=== PATIENT | male | born 1955 | race Caucasian/White ===

== ENCOUNTER 2025-03-03 14:07 | Inpatient (IN) | payer OTHER ==
[2025-03-03 16:39] VITALS: BMI 26.9
[2025-03-03] MEDS ORDERED: LOPERAMIDE HCL 2 MG CAPSULE PO PRN (16:57)
[2025-03-03] MEDS ORDERED: BENZONATATE 200 MG CAPSULE PO PRN (16:57)
[2025-03-03] MEDS ORDERED: POLYETHYLENE GLYCOL (HEALTHYLAX) 3350 17 GM PACKET PO PRN (16:57)
[2025-03-03] MEDS ORDERED: IBUPROFEN 600 MG TABLET (FP) PO PRN (16:57)
[2025-03-03] MEDS ORDERED: BISMUTH SUBSALICYLATE 524 MG/30 ML PO PRN (16:57)
[2025-03-03] MEDS ORDERED: guaiFENesin 600 MG TABLET.ER (FP) PO PRN (16:57)
[2025-03-03] MEDS ORDERED: ONDANSETRON *ODT* 4 MG TABLET SL PRN (16:57)
[2025-03-03] MEDS ORDERED: NALOXONE (NARCAN) HCL 4 MG/0.1 ML SPRAY NS PRN (16:57)
[2025-03-03] MEDS ORDERED: MAGNESIUM HYDROX 2400MG/30ML ORAL SUSPENSION 30 ML CUP PO PRN (16:57)
[2025-03-03] MEDS ORDERED: BENZOCAINE/MENTHOL (CHLORASEPTIC ) LOZENGE MM PRN (16:57)
[2025-03-03] MEDS ORDERED: IBUPROFEN 400 MG TABLET (FP) PO PRN (16:57)
[2025-03-03] MEDS ORDERED: MAG HYDROX/AL HYDROX/SIMETH 30 ML UNIT-DOSE CUP PO PRN (16:57)
[2025-03-03] MEDS ORDERED: ACETAMINOPHEN 325 MG TABLET (FP) ONE (17:52)
[2025-03-03] MEDS: ACETAMINOPHEN 325 MG TABLET (FP) PO PRN (17:53)
[2025-03-03] MEDS: THIAMINE 100 MG TABLET PO SCH (22:08)
[2025-03-03] MEDS: ATORVASTATIN CA 40 MG TABLET (FP) PO SCH (22:08)
[2025-03-03] MEDS: MELATONIN 5 MG TABLETS PO SCH (22:08)
[2025-03-03] MEDS: APIXABAN 5 MG TABLET PO SCH (22:08)
[2025-03-04] MEDS: EMPAGLIFLOZIN (JARDIANCE) 25 MG TABLET PO SCH (06:43)
[2025-03-04] MEDS: PIOGLITAZONE HCL 15 MG TABLET PO SCH (06:44)
[2025-03-04] MEDS: INSULIN ASPART SLIDING SCALE (NOVOLOG) 1 VIAL SQ SCH (06:47)
[2025-03-04] MEDS: LEVOTHYROXINE NA 125 MCG TABLET (FP) PO SCH (06:54)
[2025-03-04] MEDS: SPIRONOLACTONE 25 MG TABLET PO SCH (10:38)
[2025-03-04] MEDS: PRENATAL VITAMINS W/ FOLIC ACID TABLET (FP) PO SCH (10:38)
[2025-03-04] MEDS: FOLIC ACID 1 MG TABLET (FP) PO SCH (10:39)
[2025-03-04] MEDS: ASPIRIN COATED 81 MG TABLET.EC PO SCH (10:39)
[2025-03-04] MEDS: EZETIMIBE 10 MG TABLET (FP) PO SCH (11:00)
[2025-03-05] MEDS: LEVOTHYROXINE 100 MCG, LEVOTHYROXINE 25 MCG PO SCH (06:12)
[2025-03-05 10:26] VITALS: BP 108/70; PULSE 97; RESP 18; TEMP 97.1
[2025-03-05] MEDS ORDERED: ACETAMINOPHEN 325 MG TABLET (FP) PO PRN (10:56)
== END 2025-03-05 12:06 | disposition home or self-care (01) | DRG 897 ==
LOC: YASAS 14:07 → Y3N 17:17
PROVIDERS: ADMIT Neuromusculoskeletal Medicine & OMM; ATTEND Allergy & Immunology
DX: F10.230 Alcohol dependence with withdrawal, uncomplicated (principal); E11.9 Type 2 diabetes mellitus without complications; I10 Essential (primary) hypertension; E03.9 Hypothyroidism, unspecified; I25.10 Atherosclerotic heart disease of native coronary artery without angina pectoris; I25.2 Old myocardial infarction
CPT/HCPCS: 82962